=== PATIENT | female | born 1975 | race Caucasian/White ===

== ENCOUNTER 2025-03-01 11:46 | Emergency (ER) | payer MEDICAID ==
[~2025-03-01] VITALS: Ht 162.6 cm; Wt 55.0 kg
[2025-03-01 11:49] VITALS: O2SAT 100
[2025-03-01] MEDS: IBUPROFEN 400MG TABLET PO ONE (12:52)
[2025-03-01] MEDS: LIDOCAINE 5% PATCH TOP SCH (12:54)
[2025-03-01] MEDS ORDERED: LIDO700A30 TP (13:07)
[2025-03-01] MEDS ORDERED: IBUP-2028 MT (13:08)
[2025-03-01 13:35] VITALS: BP 143/80; PULSE 75; RESP 18; TEMP 37.1; O2SAT 100
== END 2025-03-01 13:37 | disposition home or self-care (01) ==
LOC: ER 11:46
DX: T14.8XXA Other injury of unspecified body region, initial encounter (principal); I10 Essential (primary) hypertension; Z79.899 Other long term (current) drug therapy; V43.52XA Car driver injured in collision with other type car in traffic accident, initial encounter; Y93.89 Activity, other specified; Y92.89 Other specified places as the place of occurrence of the external cause; Y99.8 Other external cause status
CPT/HCPCS: 72040; 99283